=== PATIENT | female | born 1960 | race Two or more races ===

== ENCOUNTER 2018-11-05 06:47 | Day surgery (SDC) | payer OTHER ==
[2018-11-02 15:47] LABS: CALCIUM 8.9 mg/dL (8.5-10.1); CARBON DIOXIDE 27.5 mmol/L (21-32); CHLORIDE SERUM 104 mmol/L (98-107); CREATININE SERUM 0.7 mg/dL (0.6-1.0); GFR1 > 60 mL/min; GLUCOSE SERUM 90 mg/dL (74-106); POTASSIUM SERUM 3.6 mmol/L (3.5-5.1); SODIUM SERUM 141 mmol/L (136-145)
[2018-11-02 15:51] LABS: BASOPHIL % 0.2 % (0-2); PLATELET COUNT 266 x10^3mcL (130-400); RED CELL DISTRIBUTION WIDTH 13.8 % (11.5-14.5)
[~2018-11-05] VITALS: Ht 157.5 cm; Wt 66.2 kg
[2018-11-05 07:15] VITALS: BP 128/79
[2018-11-05 11:19] VITALS: BP 123/69
== END 2018-11-05 11:00 | disposition home or self-care (01) ==
LOC: DS 06:47
PROVIDERS: Obstetrics & Gynecology
DX: N72 Inflammatory disease of cervix uteri (principal); N87.9 Dysplasia of cervix uteri, unspecified; Z98.890 Other specified postprocedural states; Z79.899 Other long term (current) drug therapy
CPT/HCPCS: C1758; J2250; J2405; J2704; J3010; J7120